=== PATIENT | male | born 2000 | race Caucasian/White ===

== ENCOUNTER 2023-05-19 22:49 | Inpatient (IN) | payer OTHER ==
[2023-05-19 23:48] LABS: ALT 51 U/L (4-49); AST 36 U/L (17-59); African American GFR (CKD) >90 (>60 ml/min/1.73 sqM); Albumin 4.5 g/dL (3.5-5.0); Alkaline Phosphatase 72 U/L (38-126); Anion Gap 14 mmol/L; Blood Urea Nitrogen 12 mg/dL (9-20); Calcium 8.8 mg/dL (8.4-10.2); Carbon Dioxide 23 mmol/L (22-30); Chloride 107 mmol/L (98-107); Glucose 92 mg/dL (74-99); Non-African American GFR(CKD) >90 (>60 ml/min/1.73 sqM); Potassium 3.9 mmol/L (3.5-5.1); Sodium 144 mmol/L (137-145); Total Bilirubin 0.7 mg/dL (0.2-1.3); Total Protein 7.4 g/dL (6.3-8.2)
[2023-05-19 23:50] LABS: Basophils % (A) 1 %; Eosinophils # (A) 0.1 k/uL (0-0.7); Eosinophils % (A) 1 %; HCT 46.6 % (39.0-53.0); HGB 16.7 gm/dL (13.0-17.5); Hyperchromasia Slight; Lymphocytes # (A) 2.2 k/uL (1.0-4.8); Lymphocytes % (A) 38 %; MCH 30.3 pg (25.0-35.0); MCHC 35.7 g/dL (31.0-37.0); MCV 84.7 fL (80.0-100.0); Mean Platelet Volume 7.8; Monocytes # (A) 0.3 k/uL (0-1.0); Monocytes % (A) 5 %; Neutrophils % (A) 52 %; Platelet Count 192 k/uL (150-450); WBC 5.8 k/uL (3.8-10.6)
[2023-05-19 23:59] LABS: Amphetamine Screen,Urine Not Detected (NotDetected); Barbiturate Screen,Urine Not Detected (NotDetected); Benzodiazepines Screen,Urine Not Detected (NotDetected); Cocaine Screen,Urine Not Detected (NotDetected); Methadone Screen, Urine Not Detected (NotDetected); Opiate Screen,Urine Not Detected (NotDetected); Oxycodone Screen, Urine Not Detected (NotDetected); Phencyclidine Screen,Urine Not Detected (NotDetected); Tricyclic Antidepressant,Urine Not Detected (NotDetected); Urn Cannabinoid Scrn Detected (NotDetected)
[2023-05-20 00:37] LABS: Alcohol 301 mg/dL
--- NOTE | 2023-05-20 01:45 | ED ---
General Adult HPI - General Chief complaint: Alcohol Stated complaint: ETOH Time Seen by Provider: 05/19/23 22:59 Source: family Mode of arrival: wheelchair Limitations: no limitations - History of Present Illness Initial comments: 's patient is 22-year-old man who drinks Frequently, accompanied by family members who state that the patient has been drinking and made some suicidal statements. the patient does appear intoxicated and didn't is not forthcoming. patient denies complaints. Denies recent trauma. -: hour(s) Severity scale (1-10): 0 Improves with: none Worsens with: none Associated Symptoms: denies other symptoms Treatments Prior to Arrival: none - Related Data Allergies Allergy/AdvReac Type Severity Reaction Status Date / Time No Known Allergies Allergy Verified 05/19/23 22:54 Review of Systems ROS Statement: Those systems with pertinent positive or pertinent negative responses have been documented in the HPI. ROS Other: All systems not noted in ROS Statement are negative. Constitutional: Denies: fever Respiratory: Denies: cough, dyspnea Cardiovascular: Denies: chest pain Gastrointestinal: Denies: abdominal pain, vomiting Musculoskeletal: Denies: back pain Neurological: Denies: headache Psychiatric: Reports: other Past Medical History Past Medical History: No Reported History History of Any Multi-Drug Resistant Organisms: None Reported Past Surgical History: No Surgical Hx Reported Past Psychological History: No Psychological Hx Reported Smoking Status: Vaper Past Alcohol Use History: Daily, Heavy Past Drug Use History: None Reported General Exam Limitations: no limitations General appearance: alert, in no apparent distress Head exam: Present: atraumatic, normocephalic Eye exam: Present: normal appearance, nystagmus. Absent: scleral icterus, conjunctival injection Neck exam: Present: normal inspection Respiratory exam: Present: normal lung sounds bilaterally. Absent: respiratory distress, wheezes, rales, rhonchi, stridor, accessory muscle use Cardiovascular Exam: Present: regular rate, normal rhythm, normal heart sounds. Absent: systolic murmur, diastolic murmur, rubs, gallop GI/Abdominal exam: Present: soft. Absent: distended, tenderness, guarding, rebound, rigid, mass Extremities exam: Present: normal inspection, normal capillary refill. Absent: pedal edema, calf tenderness Back exam: Present: normal inspection. Absent: CVA tenderness (R), CVA tenderness (L) Neurological exam: Present: alert Skin exam: Present: warm, dry, intact, normal color. Absent: rash Course Vital Signs 05/19/23 22:51 Temperature 97.5 F L Pulse Rate 94 Respiratory 18 Rate Blood Pressure 105/76 O2 Sat by Pulse 99 Oximetry Medical Decision Making - Lab Data Result diagrams: 05/19/23 23:16 05/19/23 23:16 Lab Results 05/19/23 05/19/23 05/19/23 Range/Units 23:16 23:16 23:29 WBC 5.8 (3.8-10.6) k/uL RBC 5.50 (4.30-5.90) m/uL Hgb 16.7 (13.0-17.5) gm/dL Hct 46.6 (39.0-53.0) % MCV 84.7 (80.0-100.0) fL MCH 30.3 (25.0-35.0) pg MCHC 35.7 (31.0-37.0) g/dL RDW 13.0 (11.5-15.5) % Plt Count 192 (150-450) k/uL MPV 7.8 Neutrophils % 52 % Lymphocytes % 38 % Monocytes % 5 % Eosinophils % 1 % Basophils % 1 % Neutrophils # 3.0 (1.3-7.7) k/uL Lymphocytes # 2.2 (1.0-4.8) k/uL Monocytes # 0.3 (0-1.0) k/uL Eosinophils # 0.1 (0-0.7) k/uL Basophils # 0.0 (0-0.2) k/uL Hyperchromasia Slight Sodium 144 (137-145) mmol/L Potassium 3.9 (3.5-5.1) mmol/L Chloride 107 (98-107) mmol/L Carbon Dioxide 23 (22-30) mmol/L Anion Gap 14 mmol/L BUN 12 (9-20) mg/dL Creatinine 0.67 (0.66-1.25) mg/dL Est GFR (CKD-EPI)AfAm >90 (>60 ml/min/1.73 sqM) Est GFR (CKD-EPI)NonAf >90 (>60 ml/min/1.73 sqM) Glucose 92 (74-99) mg/dL Calcium 8.8 (8.4-10.2) mg/dL Total Bilirubin 0.7 (0.2-1.3) mg/dL AST 36 (17-59) U/L ALT 51 H (4-49) U/L Alkaline Phosphatase 72 (38-126) U/L Total Protein 7.4 (6.3-8.2) g/dL Albumin 4.5 (3.5-5.0) g/dL Urine Opiates Screen Not Detected (NotDetected) Ur Oxycodone Screen Not Detected (NotDetected) Urine Methadone Screen Not Detected (NotDetected) Ur Barbiturates Screen Not Detected (NotDetected) U Tricyclic Antidepress Not Detected (NotDetected) Ur Phencyclidine Scrn Not Detected (NotDetected) Ur Amphetamines Screen Not Detected (NotDetected) U Methamphetamines Scrn Not Detected (NotDetected) U Benzodiazepines Scrn Not Detected (NotDetected) Urine Cocaine Screen Not Detected (NotDetected) U Marijuana (THC) Screen Detected H (NotDetected) Serum Alcohol 301 H* mg/dL Disposition Referrals: None,Stated [Primary Care Provider] - 1-2 days
[2023-05-20] MEDS ORDERED: NALOXONE 0.4 MG/ML 1 ML VIAL IV PRN (02:35)
--- NOTE | 2023-05-20 02:35 | P.HPIM ---
History of Present Illness H&P Date: 05/20/23 Patient is a 22-year-old male with a PMH of EtOH abuse who presents to the emergency room after being petitioned for alcohol abuse and depression with suicidal ideation. The patient reportedly has an extensive history of alcohol abuse and had expressed some suicidal ideation to his father which prompted him to file a petition. The patient was somewhat defensive during the interview and reported that he had nothing to drink today, despite his serum alcohol level being 301 in the emergency room. He reports drinking a " few shots of alcohol" daily. Denies any physical complaints at the time of interview. Denied experiencing chest discomfort, shortness of breath, fever, chills, cough, nause a, vomiting, abdominal pain, diarrhea. Laboratory evaluation in the emergency room was remarkable for serum alcohol level 301, urine toxicology positive for marijuana, AST 36, and ALT 51. ED documentation reviewed and case discussed with ED provider. Review of systems: Pertinent positives and negatives as discussed in HPI, a complete review of systems was performed and all other systems are negative. Physical examination: Vital signs reviewed General: non toxic, no distress, appears at stated age, normal weight Derm: no unusual rashes/lesions, warm Head: atraumatic, normocephalic, symmetric Eyes: EOMI, no lid lag, anicteric sclera, pupils equal round reactive to light ENT: Nose and ears atraumatic Neck: No cervical lymphadenopathy, trachea midline, supple Mouth: no lip lesion, mucus membranes moist Cardiovascular: S1S2 reg, no murmur, positive dorsalis pedis pulse bilateral, no edema Lungs: CTA bilateral, no rhonchi, no rales, no accessory muscle use Abdominal: soft, nontender to palpation, no guarding Ext: muscle strength 5 out of 5 in all 4 extremities grossly, no gross muscle atrophy, no contractures, Neuro: CN II-XI grossly intact, no gross focal neuro deficits Psych: Alert, oriented, appropriate affect Assessment: Alcohol intoxication, impending withdrawal Depression with suicidal ideation Imaging: None performed Data Review: Laboratory evaluation in the emergency room was remarkable for serum alcohol level 301, urine toxicology positive for marijuana, AST 36, and ALT 51. Plan: CIWA protocol with Ativan Continue with thiamine Continue IV fluids with normal saline 75 cc/h Advised on the importance of cessation from alcohol use Psychiatry consult Suicide precautions DVT prophylaxis: Lovenox subcu The patient is admitted with an anticipated less than 2 midnight stay for evaluation of alcohol abuse CODE STATUS: Full Code Discussed with: Patient Anticipated discharge place: Home Past Medical History Past Medical History: No Reported History History of Any Multi-Drug Resistant Organisms: None Reported Past Surgical History: No Surgical Hx Reported Past Psychological History: No Psychological Hx Reported Smoking Status: Vaper Past Alcohol Use History: Daily, Heavy Past Drug Use History: None Reported Medications and Allergies Allergies Allergy/AdvReac Type Severity Reaction Status Date / Time No Known Allergies Allergy Verified 05/19/23 22:54 Physical Exam Vitals: Vital Signs Temp Pulse Resp BP Pulse Ox 05/19/23 22:51 97.5 F L 94 18 105/76 99 Intake and Output 05/19/23 05/19/23 05/20/23 14:59 22:59 06:59 Other: Weight 63.503 kg Results CBC & Chem 7: 05/19/23 23:16 05/19/23 23:16 Labs: Abnormal Lab Results - Last 24 Hours (Table) 05/19/23 05/19/23 Range/Units 23:16 23:29 ALT 51 H (4-49) U/L U Marijuana (THC) Screen Detected H (NotDetected) Serum Alcohol 301 H* mg/dL
[2023-05-20] MEDS ORDERED: chlordiazePOXIDE 25 MG CAP PO PRN (02:37)
[2023-05-20] MEDS ORDERED: LORazepam 2 MG/ML INJ IV PRN ×3 (02:37)
--- NOTE | 2023-05-20 13:25 | P.PN ---
Subjective Progress Note Date: 05/20/23 Hospital course: Patient is a very pleasant 22-year-old male with a past medical history of EtOH abuse. He presented to the emergency department with a chief complaint of alcohol intoxication and suicidal ideations. Upon arrival to the emergency department, patient underwent evaluation. Vital signs upon arrival show blood pressure 105/76, heart rate 94, respiratory rate 18, temp 97.5 F, and SpO2 of 99% on room air. Labs completed and reviewed. CBC and BMP were unremarkable. Liver profile showing slightly elevated ALT of 51 otherwise normal findings. Urine drug screen was positive for marijuana otherwise negative. Serum blood alcohol level was elevated at 301. Patient was admitted under our services for medical detox and pending evaluation by psychiatrist. Physical exam: Vital signs reviewed and stable. General: Nontoxic, no distress and appears stated age. Derm: Skin warm and dry, normal coloration for ethnicity. Head: Atraumatic, normocephalic and symmetric. Eyes: EOMs intact, no lid lag, and anicteric sclera Mouth: no lip lesions, mucus membranes moist Cardiovascular: regular rate and rhythm with normal S1S2, no murmur, positive posterior tibial pulses bilaterally, and cap refill < 2 seconds. Lungs: Respirations even, regular, and unlabored on room air. Lungs CTA bilaterally, no rhonchi, no rales, no wheezing, and no accessory muscle usage. Abdominal: soft, nontender to palpation, no guarding, no appreciable organomegaly Ext: ROM intact. No gross muscle atrophy, no edema, no contractures Neuro: Speech clear, face symmetrical and CN II-XII grossly intact with no noted focal neuro deficits Psych: Alert and oriented to person, place, time, and situation. Appropriate and pleasant affect. Assessment and Plan of Care: Alcohol intoxication -Continue monitoring of CIWA scores and patient to be medicated with Ativan 0.5 mg every 4 hours as needed for CIWA score of 4-5, Ativan 1 mg every 4 hours for CIWA score of 6-7, Ativan 2 mg every 3 hours CIWA score of 8-9, and Ativan 2 mg every 2 hours forr CIWA score of 10 or greater. -Continuous IV hydration. -Thiamine 100 mg twice a day -Multivitamin daily -Folate 1 mg daily -Seizure, fall, and elopement precautions in place. -Urine drug screen -Continued close monitoring of electrolytes and replace as needed. -Telemetry monitoring. Suicidal ideations -Patient presented with reports of suicidal ideations, currently denies. -Patient was petitioned upon arrival to the emergency department, awaiting psychiatry to evaluate. -Continue suicide precautions with one-to-one sitter. CODE STATUS: Full code DVT prophylaxis: Lovenox Anticipated discharge date: Clinical course to determine Anticipated discharge place: Home versus inpatient psychiatric unit Patient was seen independently by Nurse Pracitioner. This document was prepared using [employer] dictation software. Please allow for errors in transformer mechanic, while rare they do occur. .I reviewed the documentation as provided by the GRAEME above, who is the original author of this note. I agree with the documented assessment and plan, with the following changes: none Objective - Vital Signs Vital signs: Vital Signs Temp 98.3 F 05/20/23 07:26 Pulse 72 05/20/23 07:26 Resp 17 05/20/23 07:26 BP 108/61 05/20/23 07:26 Pulse Ox 100 05/20/23 07:26 FiO2 Intake & Output 05/19/23 05/20/23 05/20/23 18:59 06:59 18:59 Weight 63.503 kg - Labs CBC & Chem 7: 05/19/23 23:16 05/19/23 23:16 Labs: Abnormal Lab Results - Last 24 Hours (Table) 05/19/23 05/19/23 Range/Units 23:16 23:29 ALT 51 H (4-49) U/L U Marijuana (THC) Screen Detected H (NotDetected) Serum Alcohol 301 H* mg/dL
[2023-05-20] MEDS: MULTIVITAMINS, THERA 1 EACH TAB PO SCH (14:46)
[2023-05-20] MEDS: SODIUM CHLORIDE 0.9% 1,000 ML IV SCH (14:46)
[2023-05-20] MEDS: FOLIC ACID 1 MG TAB PO SCH (14:46)
--- NOTE | 2023-05-20 15:08 | P.CN ---
Psychiatric Consult - . Consult date: 05/20/23 Consult:: 05/20/23 13:31 IDENTIFYING DATA: This patient is a 22-year-old male, currently lives with his father and brother in a house. He is unemployed. REASON FOR REFERRAL: Psychiatry was consulted for "mood disorder, suicidal ideations" HISTORY OF PRESENT ILLNESS: The patient presented to the hospital on 05/19, and was petitioned by his father claimed that patient was acting fairly intoxicated, belligerent and did endorse suicidal thoughts prior to coming in the hospital. Patient was fairly intoxicated when he arrived in the hospital, his blood alcohol level was 301. He is admitted medically. His urine drug screen is positive for THC. Patient's nurse states that she has no complaints about patient's behavior, he is not endorsing any suicidal thoughts. Patient was with a one-to-one sitter at his side. He was agreeable to speak to telegraphic typewriter installer. He appeared to be fairly calm and collected during the interview. He was fairly pleasant, he was somewhat guarded about what happened. He states that "I probably drank too much". States that he did not remember too much or what happened. States that he started drinking around 2 PM drank about 1/5 of vodka. States that he is watching television. Claims that he took a low to his brother who came and home. Claims that he has not remember much after that. States that he does not have any significant stressors at this time, denies any problems with mood depression or anxiety. States that he does not have any anxiety at this time. Claims that he is sleeping and eating well. He did give telegraphic typewriter installer permission to speak with his father Jeff over the phone petitioned him. [employer] talked to patient's father over the phone at [phone]. He states that he is concerned about his son's behavior as he is fairly reckless at home, has been getting into trouble with the law. He has a previous DUI. He states that he is going to the courts to have him evicted from the house and does not know what to do with him. Father claims that he plays hockey and he does well when h e is not drinking however when he starts drinking he becomes a different person it appears and becomes aggressive and belligerent at times and has been in trouble with the law and owes money. At this time patient denies any suicidal or homical ideations, intent or plan. Patient denies any auditory, visual hallucinations and denies any paranoia or delusions. Patients admits to using alcohol claims that he drinks 1-2 times a week, minimizing his alcohol use, states that he vapes nicotine products. Admits to occasional cannabis use. PAST PSYCHIATRIC HISTORY: Patient has a a history of alcohol use disorder. Patient denies being on any psychiatric medications. Patient denies any previous psychiatric hospitalizations. Patient denies any psychiatric outpatient follow-up. Patient denies any history of suicide attempts in the past. Past Medical History: No Reported History History of Any Multi-Drug Resistant Organisms: None Reported Past Surgical History: No Surgical Hx Reported Past Psychological History: No Psychological Hx Reported Smoking Status: Vaper Past Alcohol Use History: Daily, Heavy Past Drug Use History: None Reported ALLERGIES: as per EMR. CHEMICAL DEPENDENCY HISTORY: as per HPI. FAMILY PSYCHIATRIC/SUBSTANCE USE HISTORY: Denies SOCIAL HISTORY: Patient was born and raised in [place], claims that he recently moved up with his father in the [facility]. Claims that he lives with his father and brother in the house, he is currently unemployed. He claims that he did some college completed high school. States that he did have a DUI about 2 years ago, claims that he did not go to senior living. MENTAL STATUS EXAM: General Appearance: Patient appears to be thin, wearing hospital gown stated age is alert, pleasant, and cooperative. Patient appears to have fair hygiene and grooming wearing. Appropriate eye contact Behavior: Patient is calmly lying in bed without any agitated behavior. Evasive at times, guarded Speech: Patient's speech is fluent and nonpressured. Mood/Affect: Patient reports their mood is "ok", affect is congruent Suicidality/Homicidality: Patient denies having any suicidal or homicidal ideation intent or plan. Perceptions: Patient denies any visual hallucinations and denies any auditory hallucinations Though content/process: There is no evidence of any delusional thought content and thought process is linear and goal-directed. Minimizing his alcohol use Memory and concentration: AOX3, grossly intact for the purposes of this session. 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 -Would recommend the following medication changes/additions: [employer] attempted to offer patient antidepressant medications and also anticraving medications for his alcohol use disorder however patient declined. He states that he would rather do outpatient counseling instead. [employer] also spoke with patient in depth about the risks of alcohol and other substances to his mental health and also his physical health, patient will be understood and agreed. [employer] also encouraged patient to go to rehab or AA meetings or outpatient counseling, patient states that he will think about it however he is declining rehab at this time. -CIWA protocol with PRN Ativan for alcohol withdrawal. Continue to monitor vital signs. -Can discontinue 1:1 sitter at this time as patient is not currently an imminent threat to themselves -demolition worker to provide patient with outpatient mental health/psychiatry resources for appropriate follow up upon discharge -[employer] spoke with patient about substance abuse and the harmful effects on medical and mental health, patient verbally understood and agreed. -demolition worker to provide patient substance use treatment resources including AA/NA meetings in the community. -demolition worker to provide patient with access line number to call for inpatient substance rehab -Communicated plan to patient's nurse -Psychiatry will sign off at this time -Please contact with any questions. 05/20/23 15:00
[2023-05-21] MEDS: THIAMINE 100 MG TAB PO SCH (07:46)
[2023-05-21] MEDS: ENOXAPARIN 40 MG/0.4 ML SYRINGE SQ SCH (07:46)
[2023-05-21 08:25] VITALS: BP 111/73; PULSE 66; RESP 18; TEMP 98.4
[2023-05-21 09:28] LABS: African American GFR (CKD) >90 (>60 ml/min/1.73 sqM); Anion Gap 4 mmol/L; Blood Urea Nitrogen 13 mg/dL (9-20); Calcium 9.1 mg/dL (8.4-10.2); Carbon Dioxide 28 mmol/L (22-30); Chloride 105 mmol/L (98-107); Glucose 108 mg/dL (74-99); Magnesium 1.8 mg/dL (1.6-2.3); Non-African American GFR(CKD) >90 (>60 ml/min/1.73 sqM); Potassium 3.9 mmol/L (3.5-5.1); Sodium 137 mmol/L (137-145)
--- NOTE | 2023-05-21 12:59 | P.DS ---
Providers Date of admission: 05/20/23 02:37 Expected date of discharge: 05/21/23 Attending physician: Fadia Siegel MD Consults: 05/20/23 02:35 Consult Physician Routine Consulting Provider: Carson Keane Consult Reason/Comments: mood disorder, suicidal ideation Do you want consulting provider notified?: Yes Primary care physician: Stated None Hospital Course: Discharge Diagnosis: Alcohol intoxication with binge drinking behaviors. Patient monitored and provided with IV fluid hydration until clinically sober. Patient educated on the importance of not participating in binge drinking behaviors and strongly encouraged to avoid any and all alcohol use. Patient provided with outpatient counseling resources available to him. Suicidal ideations. Patient was evaluated by psychiatry clearing patient from their perspective recommending outpatient counseling. Hospital Course: Patient is a very pleasant 22-year-old male with a past medical history of EtOH abuse. He presented to the emergency department with a chief complaint of alcohol intoxication and suicidal ideations. Upon arrival to the emergency department, patient underwent evaluation. Vital signs upon arrival show blood pressure 105/76, heart rate 94, respiratory rate 18, temp 97.5 F, and SpO2 of 99% on room air. Labs completed and reviewed. CBC and BMP were unremarkable. Liver profile showing slightly elevated ALT of 51 otherwise normal findings. Urine drug screen was positive for marijuana otherwise negative. Serum blood alcohol level was elevated at 301. Patient was admitted under our services for medical detox and pending evaluation by psychiatrist. Patient monitored and provided with IV fluid hydration. He was evaluated by psychiatry clearing patient from their perspective recommending outpatient counseling. Medically, patient stable for discharge at this time. Patient free from any complaints or concerns, he continues to deny having any suicidal ideations. Patient educated on the importance of not participating in binge drinking behaviors and strongly encouraged to avoid any and all alcohol use. Patient provided with outpatient counseling resources available to him. Patient medically stable for discharge at this time. Physical exam: Vital signs reviewed and stable. General: Nontoxic, no distress and appears stated age. Derm: Skin warm and dry, normal coloration for ethnicity. Head: Atraumatic, normocephalic and symmetric. Eyes: EOMs intact, no lid lag, and anicteric sclera Mouth: no lip lesions, mucus membranes moist Cardiovascular: regular rate and rhythm with normal S1S2, no murmur, positive posterior tibial pulses bilaterally, and cap refill < 2 seconds. Lungs: Respirations even, regular, and unlabored on room air. Lungs CTA bilate rally, no rhonchi, no rales, no wheezing, and no accessory muscle usage. Abdominal: soft, nontender to palpation, no guarding, no appreciable organomegaly Ext: ROM intact. No gross muscle atrophy, no edema, no contractures Neuro: Speech clear, face symmetrical and CN II-XII grossly intact with no noted focal neuro deficits Psych: Alert and oriented to person, place, time, and situation. Appropriate and pleasant affect. A total of 28 minutes of time were spent preparing this complex discharge summary. Pt was discharged on 05/21/2023 at 12:50 PM. Patient was seen independently by Nurse Practitioner. This document was prepared using [employer] dictation software. Please allow for errors in education trainer while rare they do occur. Vinayak Farmer NP rendered care for this patient independently, reviewed the findings and plan as documented in the note above. I did not physically speak with or examine the patient on this date. Patient Condition at Discharge: Stable Plan - Discharge Summary Discharge Rx Participant: No New Discharge Prescriptions: No Action No Known Home Medications Discharge Medication List No Known Home Medications 05/20/23 [History] Follow up Appointment(s)/Referral(s): None,Stated [Primary Care Provider] - 1-2 days Patient Instructions/Handouts: Alcohol Intoxication (DC), At-Risk Alcohol Use (DC) Discharge/Stand Alone Forms: Outpatient Counseling, Inp Substance Abuse Facilities, Outpatient Therapy List Discharge Disposition: HOME SELF-CARE
== END 2023-05-21 15:41 | disposition home or self-care (01) | DRG 897 ==
LOC: EC 22:49 → 5NMEDONC 05-20 02:37 → 4SSUR 05-20 04:28
PROVIDERS: ADMIT Internal Medicine; ATTEND Internal Medicine
DX: F10.129 Alcohol abuse with intoxication, unspecified (principal); R45.851 Suicidal ideations; F12.10 Cannabis abuse, uncomplicated; F32.A Depression, unspecified; F43.25 Adjustment disorder with mixed disturbance of emotions and conduct; Z28.310 Unvaccinated for COVID-19; Y90.8 Blood alcohol level of 240 mg/100 ml or more; R74.01 Elevation of levels of liver transaminase levels; F17.290 Nicotine dependence, other tobacco product, uncomplicated; Z65.3 Problems related to other legal circumstances; Z56.0 Unemployment, unspecified; Z71.41 Alcohol abuse counseling and surveillance of alcoholic
CPT/HCPCS: 36415; 80048; 80053; 80306; 80320; 82075; 83735; 85025

== ENCOUNTER 2024-07-31 14:47 | Observation (INO) | payer OTHER ==
--- NOTE | 2024-07-31 15:08 | ED ---
General Adult HPI - General Chief complaint: Alcohol Stated complaint: ETOH Time Seen by Provider: 07/31/24 14:50 Source: patient, EMS, RN notes reviewed Mode of arrival: EMS Limitations: altered mental status - History of Present Illness Initial comments: Patient is a 23-year-old male present to the emergency department with alcohol intoxication. Patient refuses to answer questions when asked. Nursing staff patient states patient did make some sort of suicidal statement however patient will not confirm or deny this. No specific complaints. Patient states to nursing that he has been drinking heavy for the past 10 years. - Related Data Home Medications Medication Instructions Recorded Confirmed No Known Home Medications 05/20/23 05/20/23 Allergies Allergy/AdvReac Type Severity Reaction Status Date / Time No Known Allergies Allergy Verified 07/31/24 15:03 Review of Systems ROS Statement: Those systems with pertinent positive or pertinent negative responses have been documented in the HPI. ROS Other: All systems not noted in ROS Statement are negative. Constitutional: Denies: fever Eyes: Denies: eye pain ENT: Denies: ear pain Cardiovascular: Reports: palpitations Endocrine: Denies: fatigue Past Medical History Past Medical History: No Reported History History of Any Multi-Drug Resistant Organisms: None Reported Past Surgical History: No Surgical Hx Reported Past Anesthesia/Blood Transfusion Reactions: No Reported Reaction Past Psychological History: No Psychological Hx Reported Smoking Status: Vaper Past Alcohol Use History: Daily, Heavy Past Drug Use History: None Reported General Exam Limitations: altered mental status General appearance: alert, in no apparent distress Head exam: Present: normocephalic Eye exam: Present: normal appearance Respiratory exam: Present: normal lung sounds bilaterally Cardiovascular Exam: Present: tachycardia GI/Abdominal exam: Present: soft. Absent: tenderness Extremities exam: Present: normal inspection Neurological exam: Present: alert. Absent: motor sensory deficit Psychiatric exam: Present: agitated Skin exam: Present: normal color Course Vital Signs 07/31/24 14:50 Temperature 97.7 F Pulse Rate 128 H Respiratory 18 Rate Blood Pressure 116/79 O2 Sat by Pulse 97 Oximetry Medical Decision Making - Medical Decision Making Was pt. sent in by a medical professional or institution (, PA, CIVIL STRUCTURAL ENGINEER, urgent care, hospital, or shelter...) When possible be specific @ -No Did you speak to anyone other than the patient for history (EMS, parent, family, police, friend...)? What history was obtained from this source @ -No Did you review nursing and triage notes (agree or disagree)? Why? @ -I reviewed and agree with nursing and triage notes Were old charts reviewed (outside hosp., previous admission, EMS record, old EKG, old radiological studies, urgent care reports/EKG's, shelter records)? Report findings @ -No old charts were reviewed Differential Diagnosis (chest pain, altered mental status, abdominal pain women, abdominal pain men, vaginal bleeding, weakness, fever, dyspnea, syncope, headache, dizziness, GI bleed, back pain, seizure, CVA, palpatations, mental health, musculoskeletal)? @ -Differential Mental Health Depression, anxiety, bipolar, psychosis, schizophrenia, borderline personality, situational depression, adjustment disorder, behavioral disorder, brain tumor, malingering, substance abuse, encephalopathy, medication reaction, dementia, hypothyroidism, degenerative neurologic disorder, lupus.... This is not meant to be all-inclusive list EKG interpreted by me (3pts min.). @ -As above X-rays interpreted by me (1pt min.). @ -Chest x-ray shows no acute process CT interpreted by me (1pt min.). @ -None done U/S interpreted by me (1pt. min.). @ -None done What testing was considered but not performed or refused? (CT, X-rays, U/S, labs)? Why? @ -None What meds were considered but not given or refused? Why? @ -None Did you discuss the management of the patient with other professionals (professionals i.e. , PA, CIVIL STRUCTURAL ENGINEER, lab, RT, psych nurse, social media marketing analyst, electric wirer, teacher, police officer crime prevention, high risk case manager)? Give summary @ -Case discussed with Dr. Garcia who will admit covering hospital call Was smoking cessation discussed for >3mins.? @ -No Was critical care preformed (if so, how long)? @ -No Were there social determinants of health that impacted care today? How? (Homelessness, low income, unemployed, alcoholism, drug addiction, transp ortation, low edu. Level, literacy, decrease access to med. care, mcc, rehab)? @ -No Was there de-escalation of care discussed even if they declined (Discuss DNR or withdrawal of care, Hospice)? DNR status @ -No What co-morbidities impacted this encounter? (DM, HTN, Smoking, COPD, CAD, Cancer, CVA, ARF, Chemo, Hep., AIDS, mental health diagnosis, sleep apnea, morbid obesity)? @ -None Was patient admitted / discharged? Hospital course, mention meds given and route, prescriptions, significant lab abnormalities, going to OR and other pertinent info. @ -Patient presents with alcohol intoxication and depression. Alcohol level 369. Patient will be admitted with psychiatric consult. Admission orders written. Patient updated Undiagnosed new problem with uncertain prognosis? @ -No Drug Therapy requiring intensive monitoring for toxicity (Heparin, Nitro, Insulin, Cardizem)? @ -No Were any procedures done? @ -No Diagnosis/symptom? @ -Alcohol intoxication, depression Acute, or Chronic, or Acute on Chronic? @ -Acute, acute Uncomplicated (without systemic symptoms) or Complicated (systemic symptoms)? @ -Default Side effects of treatment? @ -No Exacerbation, Progression, or Severe Exacerbation? @ -No Poses a threat to life or bodily function? How? (Chest pain, [place], [place], pneumonia, PE, COPD, DKA, ARF, appy, cholecystitis, CVA, Diverticulitis, Homicidal, Suicidal, threat to staff... and all critical care pts) @ -No - Lab Data Result diagrams: 07/31/24 16:01 07/31/24 16:01 Lab Results 07/31/24 07/31/24 Range/Units 16:01 16:01 WBC 4.41 L (4.50-10.00) 10*3/uL RBC 5.03 (4.40-5.60) 10*6/uL Hgb 15.4 (13.0-17.0) g/dL Hct 43.7 (39.6-50.0) % MCV 86.9 (80.0-97.0) fL MCH 30.6 (27.0-32.0) pg MCHC 35.2 (32.0-37.0) g/dL Plt Count 248 (140-440) 10*3/uL MPV 8.9 L (9.5-12.2) fL Immature Gran % (Auto) 0.2 % Neutrophils % 63.6 % Lymphocytes % 27.2 % Monocytes % 7.9 % Eosinophils % 0.2 % Basophils % 0.9 % Immature Gran # 0.01 (0.00-0.04) 10*3/uL Neutrophils # 2.80 (1.80-7.70) 10*3/uL Lymphocytes # 1.20 (0.90-5.00) 10*3/uL Monocytes # 0.35 (0.20-1.00) 10*3/uL Eosinophils # 0.01 L (0.04-0.35) 10*3/uL Basophils # 0.04 (0.00-0.10) 10*3/uL Sodium 146 H (137-145) mmol/L Potassium 3.9 (3.5-5.1) mmol/L Chloride 104 (98-107) mmol/L Carbon Dioxide 23 (22-30) mmol/L Anion Gap 19 mmol/L BUN 5 L (9-20) mg/dL Creatinine 0.67 (0.66-1.25) mg/dL Est GFR (CKD-EPI)AfAm >90 (>60 ml/min/1.73 sqM) Est GFR (CKD-EPI)NonAf >90 (>60 ml/min/1.73 sqM) Glucose 93 (74-99) mg/dL Calcium 9.0 (8.4-10.2) mg/dL Magnesium 1.7 (1.6-2.3) mg/dL Serum Alcohol 369 H* mg/dL Disposition Clinical Impression: Alcoholic intoxication, Depression Disposition: ADMITTED IP TO THIS HOSP Is patient prescribed a controlled substance at d/c from ED?: No Referrals: None,Stated [Primary Care Provider] - 1-2 days Time of Disposition: 17:05
--- NOTE | 2024-07-31 15:31 | XR ---
EXAMINATION TYPE: XR chest 1V portable DATE OF EXAM: 07/31/2024 3:22 PM COMPARISON: None. CLINICAL INDICATION: Male, 23 years old with history of tachy, Chest pain TECHNIQUE: Single frontal view of the chest is obtained. FINDINGS: There is no focal air space opacity, pleural effusion, or pneumothorax seen. The cardiac silhouette size is within normal limits. The osseous structures are intact. IMPRESSION: 1. No acute process. [facility], , 07/31/2024 3:29 PM
[2024-07-31 16:14] LABS: Basophils # (A) 0.04 10*3/uL (0.00-0.10); Basophils % (A) 0.9 %; Eosinophils # (A) 0.01 10*3/uL (0.04-0.35); Eosinophils % (A) 0.2 %; HCT 43.7 % (39.6-50.0); HGB 15.4 g/dL (13.0-17.0); Lymphocytes % (A) 27.2 %; MCH 30.6 pg (27.0-32.0); MCHC 35.2 g/dL (32.0-37.0); MCV 86.9 fL (80.0-97.0); Mean Platelet Volume 8.9 fL (9.5-12.2); Monocytes # (A) 0.35 10*3/uL (0.20-1.00); Monocytes % (A) 7.9 %; Neutrophils % (A) 63.6 %; Platelet Count 248 10*3/uL (140-440); RBC 5.03 10*6/uL (4.40-5.60); RDW 12.6 % (11.5-14.5); WBC 4.41 10*3/uL (4.50-10.00)
[2024-07-31 16:24] LABS: African American GFR (CKD) >90 (>60 ml/min/1.73 sqM); Anion Gap 19 mmol/L; Blood Urea Nitrogen 5 mg/dL (9-20); Carbon Dioxide 23 mmol/L (22-30); Chloride 104 mmol/L (98-107); Glucose 93 mg/dL (74-99); Magnesium 1.7 mg/dL (1.6-2.3); Non-African American GFR(CKD) >90 (>60 ml/min/1.73 sqM); Potassium 3.9 mmol/L (3.5-5.1); Sodium 146 mmol/L (137-145)
[2024-07-31] MEDS: THIAMINE 100 MG/ML 2 ML VIAL IM STA (16:27)
[2024-07-31] MEDS: SODIUM CHLORIDE 0.9% 1,000 ML IV STA (16:27)
[2024-07-31 16:44] LABS: Alcohol 369 mg/dL
[2024-07-31] MEDS ORDERED: NALOXONE 0.4 MG/ML 1 ML VIAL IV PRN (17:05)
[2024-07-31] MEDS ORDERED: LORazepam 1 MG TAB PO PRN (17:06)
[2024-07-31] MEDS ORDERED: LORazepam 1 MG/0.5 ML VIAL IV PRN ×2 (17:06→17:29)
[2024-07-31] MEDS ORDERED: LORazepam 0.5 MG TAB PO PRN (17:06)
[2024-07-31] MEDS ORDERED: NICOTINE GUM (POLACRILEX) 2 MG GUM BUCCAL PRN (17:27)
[2024-07-31] MEDS: LORazepam 1 MG TAB PO PRN (17:28)
[2024-07-31] MEDS: SODIUM CHLORIDE 0.9% 1,000 ML IV SCH (17:29)
[2024-07-31] MEDS: NICOTINE 21MG/24HR PATCH TRANSDERM SCH (17:36)
--- NOTE | 2024-07-31 17:49 | P.HPIM ---
History of Present Illness H&P Date: 07/31/24 History of Presenting Illness: Patient is a 23-year-old male with a past medical history of daily alcohol abuse, nicotine dependence, and daily cannabis use. He presented to the hospital via EMS with a chief complaint of altered mental status secondary to alcohol intoxication. Patient admits to drinking greater than 1/5 of alcohol daily for the last 10 years. Upon arrival patient reportedly expressed to nursing staff having suicidal ideations. Upon my examination at bedside, patient does admit to feeling depressed and being in a "bad place in life" right now. He does admit to previous self injures behaviors like burning himself with cigarettes, but denies history of suicide attempt and currently denies suicidal ideations. Patient reports he would never do that because "God would not accept me into heaven". Patient denies having homicidal ideations as well as having any visual/auditory/tactile hallucinations. Patient reports depression and feeling extremely anxious because he is craving nicotine. Patient reports smoking greater than 1 pack of cigarettes daily and vaping. In addition to nicotine and alcohol use, patient also reports daily marijuana use. He denies any other drug use including heroin, cocaine, methamphetamines, or prescription medications. He denies having any recent falls or injuries. He denies having headache, lightheadedness, dizziness, chest pain, breath, cough or congestion, nausea or vomiting, or any other complaints at this time. On disability, patient underwent evaluation in the emergency department. Vital signs upon arrival show blood pressure 116/79, heart rate 128, respiratory rate 18, temp 97.7 F, and SpO2 of 97% on room air. Chest x-ray completed negative for acute cardiopulmonary process. Labs were completed and reviewed. CBC showing leukopenia with WBC count of 4.41 and low MPV of 8.9. BMP showing hyponatremia with sodium of 146 otherwise unremarkable. Blood glucose was 93. Magnesium slightly low at 1.7. Serum alcohol level was elevated at 369. Petition completed by emergency medicine specialist whom patient made suicidal statement to. Patient admitted under our services with consultation to psychiatry. Review of systems: Pertinent positives and negatives as discussed in HPI, a complete review of systems was performed and all other systems are negative. Physical exam: Vital signs reviewed and stable. General: Nontoxic, no distress and appears stated age. Derm: Skin warm and dry, normal coloration for ethnicity. Head: Atraumatic, normocephalic and symmetric. Eyes: EOM's intact, no lid lag, and anicteric sclera Mouth: no lip lesions, mucus membranes moist Cardiovascular: regular rate and rhythm with normal S1S2, no murmur, positive posterior tibial pulses bilaterally, and cap refill < 2 seconds. Lungs: Respirations even, regular, and unlabored on room air. Lungs CTA bilaterally, no rhonchi, no rales, no wheezing, and no accessory muscle usage. Abdominal: soft, nontender to palpation, no guarding, no appreciable organomegaly Ext: ROM intact. No gross muscle atrophy, no edema, no contractures Neuro: Speech clear, face symmetrical and CN II-XII grossly intact with no noted focal neuro deficits Psych: Alert and oriented to person, place, time, and situation. Patient appears anxious and is fidgety and pacing [id number] in room. He is pleasant and cooperative with assessment. Assessment and Plan of Care: Alcohol intoxication and active alcoholic Hypomagnesemia Hypernatremia -Order placed for monitoring of CIWA scores and patient to be medicated with Ativan 0.5 mg every 4 hours as needed for CIWA score of 4-5, Ativan 1 mg every 4 hours for CIWA score of 6-7, Ativan 2 mg every 3 hours CIWA score of 8-9, and Ativan 2 mg every 2 hours forr CIWA score of 10 or greater. -Continuous IV hydration with 0.9% normal saline at 100 cc/h. -Thiamine 100 mg daily, and Multivitamin daily, and Folate 1 mg daily -Seizure, fall, aspiration, and elopement precautions in place. -Urine drug screen -Continued close monitoring of electrolytes and replace as needed. -Telemetry monitoring. Suicidal ideations Anxiety with depression -Petition completed by emergency medicine specialist whom patient made suicidal statement to. -Psychiatry consulted for evaluation, appreciate recommendations. -Suicide precautions to be maintained with continuous one-to-one sitter. -Patient currently admits to feeling extremely anxious and depressed stating "Im in a bad place in life right now." However he currently denies having any suicidal or homicidal ideations and denies having any visual/auditory/tactile hallucinations. Nicotine dependence -Patient reports smoking greater than 1 pack of cigarettes daily plus vaping complaining of severe nicotine withdrawal. -Order placed for nicotine patch 21 mg daily in addition to nicotine gum 2 mg every 2 hours as needed for persistent cravings. -Educated patient on the recommendations of smoking cessation. Cannabinoid use disorder -Strongly recommend cessation of use, discussed with patient especially given history of anxiety, marijuana can worsen these effects. Data and imaging reviewed: As stated above in HPI CODE STATUS: Full code DVT prophylaxis: Lovenox Discussed with: Patient, RN, and ED physician Anticipated discharge date: Pending clinical course and clearance by psychiatry Anticipated discharge place: Pending clinical course and clearance by psychiatry Patient was seen independently by Nurse Practitioner. This document was prepared using [employer] dictation software. Please allow for errors in physician practice consultant while rare they do occur. Vinayak Farmer NP rendered care for this patient independently, reviewed the findings and plan as documented in the note above and agree with plan. I did not physically speak with or examine the patient on this date. Past Medical History Past Medical History: No Reported History History of Any Multi-Drug Resistant Organisms: None Reported Past Surgical History: No Surgical Hx Reported Past Anesthesia/Blood Transfusion Reactions: No Reported Reaction Past Psychological History: No Psychological Hx Reported Smoking Status: Vaper Past Alcohol Use History: Daily, Heavy Past Drug Use History: None Reported Medications and Allergies Home Medications Medication Instructions Recorded Confirmed Type No Known Home Medications 05/20/23 05/20/23 History Allergies Allergy/AdvReac Type Severity Reaction Status Date / Time No Known Allergies Allergy Verified 07/31/24 15:03 Physical Exam Vitals: Vital Signs Temp Pulse Resp BP Pulse Ox 07/31/24 17:25 100 18 112/84 100 07/31/24 14:50 97.7 F 128 H 18 116/79 97 Intake and Output 07/31/24 07/31/24 07/31/24 06:59 14:59 22:59 Other: Weight 61.235 kg Results CBC & Chem 7: 07/31/24 16:01 07/31/24 16:01 Labs: Abnormal Lab Results - Last 24 Hours (Table) 07/31/24 07/31/24 Range/Units 16:01 16:01 WBC 4.41 L (4.50-10.00) 10*3/uL MPV 8.9 L (9.5-12.2) fL Eosinophils # 0.01 L (0.04-0.35) 10*3/uL Sodium 146 H (137-145) mmol/L BUN 5 L (9-20) mg/dL Serum Alcohol 369 H* mg/dL
[2024-07-31] MEDS: MAGNESIUM SULFATE-D5W PMX 1 GM in DEXTROSE/WATER 1 100ML.BAG IVPB SCH (17:54)
[2024-08-01 04:07] LABS: Amphetamine Screen,Urine Not Detected (NotDetected); Barbiturate Screen,Urine Not Detected (NotDetected); Benzodiazepines Screen,Urine Detected (NotDetected); Cocaine Screen,Urine Not Detected (NotDetected); Methadone Screen, Urine Not Detected (NotDetected); Opiate Screen,Urine Not Detected (NotDetected); Oxycodone Screen, Urine Not Detected (NotDetected); Phencyclidine Screen,Urine Not Detected (NotDetected); Tricyclic Antidepressant,Urine Not Detected (NotDetected); Urn Cannabinoid Scrn Detected (NotDetected)
[2024-08-01] MEDS: LORazepam 1 MG TAB PO PRN (06:00)
[2024-08-01 07:43] VITALS: RESP 15
[2024-08-01] MEDS: PANTOPRAZOLE 40 MG/10 ML VIAL IV SCH (09:52)
[2024-08-01 09:53] LABS: HCT 37.5 % (39.6-50.0); MCH 30.6 pg (27.0-32.0); MCHC 34.7 g/dL (32.0-37.0); MCV 88.2 FL (80.0-97.0); Mean Platelet Volume 9.7 FL (9.5-12.2); NRBC Per 100 WBC 0 X 10*3/uL (0.00-0.01); Platelet Count 207 X 10*3/uL (140-440); RBC 4.25 X 10*6/uL (4.40-5.60); RDW 12.7 % (11.5-14.5); WBC 4.94 X 10*3/uL (4.50-10.00)
[2024-08-01] MEDS: MULTIVITAMINS, THERA 1 EACH TAB PO SCH (09:53)
[2024-08-01] MEDS: ENOXAPARIN 40 MG/0.4 ML SYRINGE SQ SCH (09:53)
[2024-08-01] MEDS: FOLIC ACID 1 MG TAB PO SCH (09:53)
[2024-08-01 10:11] LABS: BUN/Creat Ratio 6.86 Ratio (12.00-20.00); Blood Urea Nitrogen 4.8 mg/dL (9.0-27.0); Glucose 82 mg/dL (70-110)
[2024-08-01 10:12] LABS: ALT 166 U/L (10-49); AST 58 U/L (14-35); Albumin 4.1 g/dL (3.8-4.9); Albumin/Globulin Ratio 1.86 Ratio (1.60-3.17); Alkaline Phosphatase 48 U/L (41-126); Calcium 8.5 mg/dL (8.7-10.3); Carbon Dioxide 23.8 mmol/L (21.6-31.8); Chloride 102 mmol/L (96-109); Globulin 2.2 g/dL (1.6-3.3); Sodium 139 mmol/L (135-145); Total Bilirubin 0.9 mg/dL (0.3-1.2); Total Protein 6.3 g/dL (6.2-8.2)
[2024-08-01] MEDS: ONDANSETRON 4 MG/2 ML VIAL IVP PRN (13:16)
[2024-08-01 14:44] VITALS: BP 120/77; PULSE 119; TEMP 98.3
--- NOTE | 2024-08-01 15:44 | P.PN ---
Subjective Progress Note Date: 08/01/24 Hospital course: Patient is a 23-year-old male with a past medical history of daily alcohol abuse, nicotine dependence, and daily cannabis use. He presented to the hospital via EMS with a chief complaint of altered mental status secondary to alcohol intoxication. Patient admits to drinking greater than 1/5 of alcohol daily for the last 10 years. Upon arrival patient reportedly expressed to nursing staff having suicidal ideations. Upon my examination at bedside, patient does admit to feeling depressed and being in a "bad place in life" right now. He does admit to previous self injures behaviors like burning himself with cigarettes, but denies history of suicide attempt and currently denies suicidal ideations. Patient reports he would never do that because "God would not accept me into heaven". Patient denies having homicidal ideations as well as having any visual/auditory/tactile hallucinations. Patient reports depression and feeling extremely anxious because he is craving nicotine. Patient reports smoking greater than 1 pack of cigarettes daily and vaping. In addition to nicotine and alcohol use, patient also reports daily marijuana use. He denies any other drug use including heroin, cocaine, methamphetamines, or prescription medications. He denies having any recent falls or injuries. He denies having headache, lightheadedness, dizziness, chest pain, breath, cough or congestion, nausea or vomiting, or any other complaints at this time. On disability, patient underwent evaluation in the emergency department. Vital signs upon arrival show blood pressure 116/79, heart rate 128, respiratory rate 18, temp 97.7 F, and SpO2 of 97% on room air. Chest x-ray completed negative for acute cardiopulmonary process. Labs were completed and reviewed. CBC showing leukopenia with WBC count of 4.41 and low MPV of 8.9. BMP showing hyponatremia with sodium of 146 otherwise unremarkable. Blood glucose was 93. Magnesium slightly low at 1.7. Serum alcohol level was elevated at 369. Petition completed by cuff stitcher whom patient made suicidal statement to. Patient admit hellen under our services with consultation to psychiatry. Physical exam: Patient was seen and fully evaluated at bedside this morning, he was resting in bed with sitter at bedside maintaining safety. Patient continues to deny having suicidal or homicidal ideations, explained to patient that he was petition by nursing staff on arrival after expressing suicidal thoughts. Patient instructed psychiatry to see later today and if cleared we can discharge only at that time. Discussed with patient possibility of inpatient drug and alcohol rehabilitation facility and patient adamantly declines at this time Vital signs reviewed and stable. General: Nontoxic, no distress and appears stated age. Derm: Skin warm and dry, normal coloration for ethnicity. Head: Atraumatic, normocephalic and symmetric. Eyes: EOM's intact, no lid lag, and anicteric sclera Mouth: no lip lesions, mucus membranes moist Cardiovascular: regular rate and rhythm with normal S1S2, no murmur, positive posterior tibial pulses bilaterally, and cap refill < 2 seconds. Lungs: Respirations even, regular, and unlabored on room air. Lungs CTA bilaterally, no rhonchi, no rales, no wheezing, and no accessory muscle usage. Abdominal: soft, nontender to palpation, no guarding, no appreciable organomegaly Ext: ROM intact. No gross muscle atrophy, no edema, no contractures Neuro: Speech clear, face symmetrical and CN II-XII grossly intact with no noted focal neuro deficits Psych: Alert and oriented to person, place, time, and situation. Patient calm and cooperative this morning, no longer appearing anxious. Assessment and Plan of Care: Alcohol withdrawal Alcohol intoxication and active alcoholic Hypomagnesemia Hypernatremia -Order placed for monitoring of CIWA scores and patient to be medicated with Ativan 0.5 mg every 4 hours as needed for CIWA score of 4-5, Ativan 1 mg every 4 hours for CIWA score of 6-7, Ativan 2 mg every 3 hours CIWA score of 8-9, and Ativan 2 mg every 2 hours forr CIWA score of 10 or greater. -Continuous IV hydration with 0.9% normal saline at 100 cc/h. -Thiamine 100 mg daily, and Multivitamin daily, and Folate 1 mg daily -Seizure, fall, aspiration, and elopement precautions in place. -Urine drug screen -Continued close monitoring of electrolytes and replace as needed. -Telemetry monitoring. Suicidal ideations Anxiety with depression -Petition completed by cuff stitcher whom patient made suicidal statement to. -Psychiatry consulted for evaluation, appreciate recommendations. -Suicide precautions to be maintained with continuous one-to-one sitter. -Patient currently admits to feeling extremely anxious and depressed stating "Im in a bad place in life right now." However he currently denies having any suicidal or homicidal ideations and denies having any visual/auditory/tactile hallucinations. Nicotine dependence -Patient reports smoking greater than 1 pack of cigarettes daily plus vaping complaining of severe nicotine withdrawal. -Order placed for nicotine patch 21 mg daily in addition to nicotine gum 2 mg every 2 hours as needed for persistent cravings. -Educated patient on the recommendations of smoking cessation. Cannabinoid use disorder -Strongly recommend cessation of use, discussed with patient especially given history of anxiety, marijuana can worsen these effects. Data and reviewed: Morning labs reviewed. CBC showing RBC count of 4.25 and hematocrit of 37.5 with normal hemoglobin of 13.0. BMP showing elevated anion gap of 13.20 but improving from previous anion gap of 19 drawn yesterday. Blood glucose was 82. Magnesium was 2.0. Liver profile showing mild transaminitis with AST of 58 and ALT of 166. Vital signs reviewed. Blood pressure 118/69, heart rate 90, respiratory rate 15, temp 97.9 F, and SpO2 of 97% on room air. CODE STATUS: Full code DVT prophylaxis: Lovenox Discussed with: Patient, RN, and ED physician Anticipated discharge date: Pending clinical course and evaluation by psychiatry Anticipated discharge place: Pending clinical course and clearance by psychiatry Patient was seen independently by Nurse Practitioner. This document was prepared using [employer] dictation software. Please allow for errors in ase certified technician while rare they do occur. Vinayak Farmer NP rendered care for this patient independently, reviewed the findings and plan as documented in the note above and agree with plan. I did not physically speak with or examine the patient on this date. Objective - Vital Signs Vital signs: Vital Signs Temp 97.9 F 08/01/24 07:00 Pulse 90 08/01/24 07:00 Resp 15 08/01/24 07:00 BP 118/69 08/01/24 07:00 Pulse Ox 97 08/01/24 07:00 FiO2 Intake & Output 07/31/24 08/01/24 08/01/24 18:59 06:59 18:59 Intake Total 540 Balance 540 Weight 61.235 kg Intake: Oral 540 Other: # Voids 2 - Labs CBC & Chem 7: 08/01/24 03:29 08/01/24 03:29 Labs: Abnormal Lab Results - Last 24 Hours (Table) 06/20/25 06/20/25 06/20/25 Range/Units 16:01 16:01 21:26 WBC 4.41 L (4.50-10.00) 10*3/uL MPV 8.9 L (9.5-12.2) fL Eosinophils # 0.01 L (0.04-0.35) 10*3/uL Sodium 146 H (137-145) mmol/L BUN 5 L (9-20) mg/dL U Benzodiazepines Scrn Detected H (NotDetected) U Marijuana (THC) Screen Detected H (NotDetected) Serum Alcohol 369 H* mg/dL
--- NOTE | 2024-08-01 16:12 | P.CN ---
Psychiatric Consult - . Consult date: 08/01/24 Consult:: Dictation was produced using [employer] dictation software. Please excuse any grammatical, word or spelling errors. IDENTIFYING DATA: This patient is a 23 years old male with past history of nicotine, alcohol and cannabis use who presented to the emergency department due to alcohol intoxication. REASON FOR REFERRAL: Psychiatry was consulted for psychiatric evaluation HISTORY OF PRESENT ILLNESS: The patient presented to the hospital with altered mental status due to alcohol intoxication. He refused to answer questions when asked by staff upon arrival. Per staff report that he made some sort of suicidal statements however could not confirm or deny. He reported to the nursing staff that he has been drinking heavily for 10 years. Per report he has been drinking greater than 1/5 of alcohol daily. Serum alcohol level was elevated at 369, AST elevated at 58, ALT elevated at 166, UDS positive for cannabis and benzodiazepine. He admitted to feeling down and depressed. Petition was completed during triage by RN. Suicidal precaution was maintained with one-to-one sitter. Upon evaluation today the patient was in his room, laying in bed, sitter at bedside. The patient states that he has been drinking too much lately, reported that he asked his father to bring him to the hospital. States that he wanted to get some help to stop drinking. States that his last drink was yesterday, reported 1/5 of vodka which he drinks on average daily. States that he was binge drinking 12 1/5 of vodka at times. He reported that he gets anxiety, nausea as well as shaking. Denied any previous history of withdrawal seizures or DTs. Reported that he had 2 DUIs in the past, last was 1 year ago. Reported that he does not drive anymore. States that he spent 60 to 90 days in the program for rehabilitation last year and does not consider inpatient rehab at this time however he would like to go to AA meetings and outpatient rehab. He admitted to mild to moderate depression and anxiety mainly related to his drinking habit. Reported that he feels guilty about his drinking and would like to stop. He reported that his depressive and anxiety symptoms are related to alcohol. He denied any current suicidal, self-harm or homicidal thoughts or behavior, denied any previous history of suicide. He reported that his sleep has been interrupted and usually he gets 3-6 hours of sleep at night on average. Admitted to good appetite. States that " I could be doing better". Reported racing thoughts at times however denied any manic or hypomanic symptoms, denied any goal-directed activities. Denied any auditory or visual hallucination, paranoia or delusion. He reported vaping daily, using cannabis daily, denied any illicit substance use. PAST PSYCHIATRIC HISTORY: - Inpatient Hospitalizations: Denies - Outpatient Care: Denies - Current Psychotropics: None currently - Prior Psychotropics/Therapy: Denies - Suicidal Attempts: Denies - Trauma History: States that he has some emotional trauma related to his DUI however denied any flashbacks or nightmares. PAST MEDICAL HISTORY: As per ED note Past Medical History: No Reported History History of Any Multi-Drug Resistant Organisms: None Reported Past Surgical History: No Surgical Hx Reported Past Anesthesia/Blood Transfusion Reactions: No Reported Reaction Past Psychological History: No Psychological Hx Reported Smoking Status: Vaper Past Alcohol Use History: Daily, Heavy Past Drug Use History: None Reported ALLERGIES: as per EMR. CHEMICAL DEPENDENCY HISTORY: as per HPI. - Tobacco: Admitted to vaping, per chart review he smokes more than 1 pack/day - Alcohol: 1/5 per day - Illicit Drugs: Denies - Cannabis: Daily FAMILY PSYCHIATRIC/SUBSTANCE USE HISTORY: Denies any family history of mental illness, reported that his brothers struggle with alcohol. SOCIAL HISTORY: Patient was born and raised in [place], he lives with his dad in [place], unemployed, claims that he had some college as a highest level of education. Reported that he had 2 DUIs before, spent 40 days in custodial 1 year ago. He went to juvenile care home when he was 13 years old for 3 days. He has 3 older siblings. MENTAL STATUS EXAM: General Appearance: Patient appears to be stated age is alert, pleasant, and cooperative. Patient appears to have fair hygiene and grooming wearing hospital gown with [fair] eye contact. Behavior: Patient is calmly lying in bed without any agitated behavior. Speech: Patient's speech is fluent and nonpressured. Mood/Affect: Patient reports their mood is "anxious", affect is congruent Suicidality/Homicidality: Patient denies having any suicidal or homicidal ideation intent or plan. Perceptions: Patient denies any visual hallucinations and denies any auditory hallucinations Though content/process: There is no evidence of any delusional thought content and thought process is linear and goal-directed. Memory and concentration: AOX3, grossly intact for the purposes of this session. 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 - Continue your current care treatment as per primary team -Would recommend the following medication changes/additions: May consider starting SSRI like Lexapro on outpatient basis, and ReVia for alcohol craving once withdrawal is over -CIWA protocol with PRN Ativan for alcohol withdrawal. Continue to monitor vital signs. -Can discontinue 1:1 sitter at this time as patient is not currently an imminent threat to themselves, patient denied any current suicidal, self-harm or homicidal thoughts or behavior -drive worker to provide patient with outpatient mental health/psychiatry resources for appropriate follow up upon discharge -Wad Printing Machine Operator spoke with patient about substance abuse and the harmful effects on medical and mental health, patient verbally understood and agreed, reported that he would like to attend AA meetings and outpatient rehab, would like to get resources from the clinical social work aide -Psychoeducation was provided into substance use, brief psychotherapy was provided. Patient will benefit from having a therapist on outpatient basis. -drive worker to provide patient substance use treatment resources including AA/NA meetings in the community. -drive worker to provide patient with access line number to call for inpatient/outpatient substance rehab -Communicated plan to patient's nurse -Psychiatry will sign off at this time -Please contact with any questions. 08/01/24 14:07 08/01/24 15:55
--- NOTE | 2024-08-01 16:29 | P.DS ---
Providers Date of admission: 07/31/24 17:05 Expected date of discharge: 08/01/24 Attending physician: Cristobal Willis Consults: 07/31/24 17:06 Consult Physician Routine Consulting Provider: Psychiatry - [facility] Psychiatry Consult Reason/Comments: psychiatric eval Do you want consulting provider notified?: Yes Primary care physician: Stated None Hospital Course: Discharge Diagnosis: Alcohol withdrawal Alcohol intoxication in active alcoholic upon admission Hypomagnesemia Hypernatremia Suicidal ideations, patient evaluated by psychiatry clearing patient from psychiatric perspective for discharge stating patient does not meet criteria for inpatient psychiatric admission and that patient is not currently an imminent threat to himself or others. Recommending outpatient counseling/therapy and patient to be provided with outpatient resources for alcohol/substance abuse. Anxiety with depression Nicotine dependence Cannabinoid use disorder Hospital Course: Patient is a 23-year-old male with a past medical history of daily alcohol abuse, nicotine dependence, and daily cannabis use. He presented to the [facility] via EMS with a chief complaint of altered mental status secondary to alcohol intoxication. Patient admits to drinking greater than 1/5 of alcohol daily for the last 10 years. Upon arrival patient reportedly expressed to nursing staff having suicidal ideations. Upon my examination at bedside, patient does admit to feeling depressed and being in a "bad place in life" right now. He does admit to previous self injures behaviors like burning himself with cigarettes, but denies history of suicide attempt and currently denies suicidal ideations. Patient reports he would never do that because "God would not accept me into heaven". Patient denies having homicidal ideations as well as having any visual/auditory/tactile hallucinations. Patient reports depression and feeling extremely anxious because he is craving nicotine. Patient reports smoking greater than 1 pack of cigarettes daily and vaping. In addition to nicotine and alcohol use, patient also reports daily marijuana use. He denies any other drug use including heroin, cocaine, methamphetamines, or prescription medications. He denies having any recent falls or injuries. He denies having headache, lightheadedness, dizziness, chest pain, breath, cough or congestion, nausea or vomiting, or any other complaints at this time. On disability, patient underwent evaluation in the emergency department. Vital signs upon arrival show blood pressure 116/79, heart rate 128, respiratory rate 18, temp 97.7 F, and SpO2 of 97% on room air. Chest x-ray completed negative for acute cardiopulmonary process. Labs were completed and reviewed. CBC showing leukopenia with WBC count of 4.41 and low MPV of 8.9. BMP showing hyponatremia with sodium of 146 otherwise unremarkable. Blood glucose was 93. Magnesium slightly low at 1.7. Serum alcohol level was elevated at 369. Petition completed by biscuitware brusher whom patient made suicidal statement to. Patient admitted under our services with consultation to psychiatry. Patient monitored overnight received continuous IV fluid hydration and was placed on CIWA protocol with benzodiazepine administration for symptoms of alcohol withdrawal. Patient is clinically and medically sober at this time. He continues to deny having any suicidal or homicidal ideations or experiencing any verbal/tactile/auditory hallucinations. Patient was evaluated by psychiatrist and was cleared from psychiatric perspective for discharge stating patient does not meet criteria for inpatient psychiatric admission and that patient is not currently an imminent threat to himself or others. Recommending outpatient counseling/therapy and patient to be provided with outpatient resources available to him. Patient is medically optimized at this time, provided with local PCP for follow-up. Patient was offered assistance with placement in inpatient drug and alcohol rehabilitation facility but declined. Patient strongly encouraged to avoid any and all alcohol use and was provided with a list of outpatient resources available to him including AA meetings, community resources, outpatient counseling, and inpatient substance abuse facilities. Physical exam: Vital signs reviewed and stable. General: Nontoxic, no distress and appears stated age. Derm: Skin warm and dry, normal coloration for ethnicity. Head: Atraumatic, normocephalic and symmetric. Eyes: EOM's intact, no lid lag, and anicteric sclera Mouth: no lip lesions, mucus membranes moist Cardiovascular: regular rate and rhythm with normal S1S2, no murmur, positive posterior tibial pulses bilaterally, and cap refill < 2 seconds. Lungs: Respirations even, regular, and unlabored on room air. Lungs CTA bilaterally, no rhonchi, no rales, no wheezing, and no accessory muscle usage. Abdominal: soft, nontender to palpation, no guarding, no appreciable organomegaly Ext: ROM intact. No gross muscle atrophy, no edema, no contractures Neuro: Speech clear, face symmetrical and CN II-XII grossly intact with no noted focal neuro deficits Psych: Alert and oriented to person, place, time, and situation. Patient calm and cooperative no longer appearing anxious. A total of 33 minutes of time were spent preparing this complex discharge summary. Pt was discharged on 08/01/2024 at 4:21 PM. Patient was seen independently by Nurse Practitioner. This document was prepared using [employer] dictation software. Please allow for errors in meat slicer while rare they do occur. Vinayak Farmer NP rendered care for this patient independently, reviewed the findings and plan as documented in the note above. I did not physically speak with or examine the patient on this date. Patient Condition at Discharge: Stable Plan - Discharge Summary New Discharge Prescriptions: Continue Multivitamins, Thera [Multivitamin (formulary)] 1 tab PO DAILY Turmeric Root Extract [Turmeric] 500 mg PO DAILY Cider Vinegar [Apple Cider Vinegar] 300 mg PO DAILY Discharge Medication List Cider Vinegar [Apple Cider Vinegar] 300 mg PO DAILY 07/31/24 [History] Multivitamins, Thera [Multivitamin (formulary)] 1 tab PO DAILY 07/31/24 [History] Turmeric Root Extract [Turmeric] 500 mg PO DAILY 07/31/24 [History] Follow up Appointment(s)/Referral(s): Abdulaziz Kirkland MD [STAFF PHYSICIAN] - 1 Week Patient Instructions/Handouts: Depression (DC), Abuse of Alcohol (DC), Alcohol Withdrawal (DC), Help Prevent Suicide (DC) Discharge/Stand Alone Forms: AA Meetings [facility], [facility] Resources, Outpatient Counseling, In Substance Abuse Facilities Discharge Disposition: HOME SELF-CARE
== END 2024-08-01 17:56 | disposition home or self-care (01) ==
LOC: EC 14:47 → 6NMEDSUR 17:05
PROVIDERS: ADMIT Student in an Organized Health Care Education/Training Program; ATTEND Student in an Organized Health Care Education/Training Program
DX: F10.239 Alcohol dependence with withdrawal, unspecified (principal); F10.229 Alcohol dependence with intoxication, unspecified; D72.819 Decreased white blood cell count, unspecified; E83.42 Hypomagnesemia; E87.0 Hyperosmolality and hypernatremia; F12.90 Cannabis use, unspecified, uncomplicated; Y90.8 Blood alcohol level of 240 mg/100 ml or more; F32.A Depression, unspecified; F41.9 Anxiety disorder, unspecified; F17.290 Nicotine dependence, other tobacco product, uncomplicated; R45.851 Suicidal ideations; F17.213 Nicotine dependence, cigarettes, with withdrawal; Z91.52 Personal history of nonsuicidal self-harm; Z74.3 Need for continuous supervision
CPT/HCPCS: 96361 ×2; 96375; 82075; 96365; 96372; 99285; 36415; 93005; 80053; 80048; 83735 ×2; 85025; 85027; 80306; 80320; 71045; G0378 ×2; S4990 ×2; J3411; J2405; J3475; J2470

== ENCOUNTER 2024-08-16 16:39 | Inpatient (IN) | payer OTHER ==
[2024-08-16] MEDS ORDERED: LORazepam 0.5 MG TAB PO PRN (16:54)
[2024-08-16] MEDS ORDERED: LORazepam 1 MG TAB PO PRN (16:54)
[2024-08-16] MEDS ORDERED: LORazepam 1 MG/0.5 ML VIAL IV PRN (16:54)
--- NOTE | 2024-08-16 16:54 | ED ---
Alcohol HPI - General Chief Complaint: Alcohol Stated Complaint: ETOH withdrawal Time Seen by Provider: 08/16/24 16:51 Source: patient, RN notes reviewed, old records reviewed, Caregiver (Mother is at bedside) Mode of arrival: ambulatory Limitations: no limitations - History of Present Illness Initial Comments: This is a 23-year-old male to the ER for evaluation of alcohol intoxication desiring treatment, patient does admit to shortness of breath and severe alcohol intoxication currently MD Complaint: alcohol intoxication, alcohol withdrawal, alcohol dependence, desires rehab, medical clearance for detox facility 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(s) Previous Visits for Alcohol Intoxication?: Yes Recent Trauma: Yes Associated Symptoms: denies other symptoms Treatments Prior to Arrival: none Chronic Alcohol Use: Yes - Related Data Home Medications Medication Instructions Recorded Confirmed Cider Vinegar [Apple Cider Vinegar] 300 mg PO DAILY 07/31/24 07/31/24 Multivitamins, Thera [Multivitamin 1 tab PO DAILY 07/31/24 07/31/24 (formulary)] Turmeric Root Extract [Turmeric] 500 mg PO DAILY 07/31/24 07/31/24 Allergies Allergy/AdvReac Type Severity Reaction Status Date / Time No Known Allergies Allergy Verified 08/16/24 16:50 Review of Systems ROS Statement: Those systems with pertinent positive or pertinent negative responses have been documented in the HPI. ROS Other: All systems not noted in ROS Statement are negative. Past Medical History Past Medical History: No Reported History History of Any Multi-Drug Resistant Organisms: None Reported Past Surgical History: No Surgical Hx Reported Past Anesthesia/Blood Transfusion Reactions: No Reported Reaction Past Psychological History: No Psychological Hx Reported Smoking Status: Vaper Past Alcohol Use History: Abuse, Daily, Heavy Past Drug Use History: Marijuana General Exam Limitations: no limitations General appearance: alert, in no apparent distress Head exam: Present: atraumatic, normocephalic, normal inspection Eye exam: Present: normal appearance, PERRL, EOMI. Absent: scleral icterus, conjunctival injection, periorbital swelling ENT exam: Present: normal exam, mucous membranes moist Neck exam: Present: normal inspection. Absent: tenderness, meningismus, lymphadenopathy Respiratory exam: Present: normal lung sounds bilaterally. Absent: respiratory distress, wheezes, rales, rhonchi, stridor Cardiovascular Exam: Present: regular rate, normal rhythm, normal heart sounds. Absent: systolic murmur, diastolic murmur, rubs, gallop, clicks GI/Abdominal exam: Present: soft, normal bowel sounds. Absent: distended, tenderness, guarding, rebound, rigid Extremities exam: Present: normal inspection, full ROM, normal capillary refill. Absent: tenderness, pedal edema, joint swelling, calf tenderness Back exam: Present: normal inspection Neurological exam: Present: alert, oriented X3, CN II-XII intact Psychiatric exam: Present: normal affect, normal mood Skin exam: Present: warm, dry, intact, normal color. Absent: rash Course Vital Signs 08/16/24 16:44 Temperature 98.2 F Pulse Rate 141 H Respiratory 18 Rate Blood Pressure 128/91 O2 Sat by Pulse 98 Oximetry - Reevaluation(s) Reevaluation #1: 08/16/24 17:08 Medical records reviewed Reevaluation #2: 08/16/24 18:39 Patient symptoms are slowly improving here in the ER Reevaluation #3: 08/16/24 18:40 Patient informed of results questions answered Reevaluation #4: Was pt. sent in by a medical professional or institution (, PA, UNIT NURSE, urgent care, hospital, or shelter...) When possible be specific @ -no Did you speak to anyone other than the patient for history (EMS, parent, family, police, friend...)? What history was obtained from this source @ -no Did you review nursing and triage notes (agree or disagree)? Why? @ -agree Are old charts reviewed (outside hosp., previous admission, EMS record, old EKG, old radiological studies, urgent care reports/EKG's, shelter records)? Rep ort findings @ -yes Differential Diagnosis (chest pain, altered mental status, abdominal pain women, abdominal pain men, vaginal bleeding, weakness, fever, dyspnea, syncope, headache, dizziness, GI bleed, back pain, seizure, CVA, palpatations, mental health, musculoskeletal)? @ -prior EKG interpreted by me (3pts min.). @ -yes X-rays interpreted by me (1pt min.). @ -yes negative for acute disease CT interpreted by me (1pt min.). @ -no U/S interpreted by me (1pt. min.). @ -no What testing was considered but not performed or refused? (CT, X-rays, U/S, labs)? Why? @ -none What meds were considered but not given or refused? Why? @ -none Did you discuss the management of the patient with other professionals (professionals i.e. , PA, UNIT NURSE, lab, RT, psych nurse, social services aide, senior game developer, t eacher, business banking officer, case supervisor)? Give summary @ -no Was smoking cessation discussed for >3mins.? @ -no Was critical care preformed (if so, how long)? @ -no Were there social determinants of health that impacted care today? How? (Homelessness, low income, unemployed, alcoholism, drug addiction, transportation, low edu. Level, literacy, decrease access to med. care, assisted, rehab)? @ -none Was there de-escalation of care discussed even if they declined (Discuss DNR or withdrawal of care, Hospice)? DNR status @ -no What co-morbidities impacted this encounter? (DM, HTN, Smoking, COPD, CAD, Cancer, CVA, ARF, Chemo, Hep., AIDS, mental health diagnosis, sleep apnea, morbid obesity)? @ -none Was patient admitted / discharged? Hospital course, mention meds given and route, prescriptions, significant lab abnormalities, going to OR and other pertinent info. @ - Undiagnosed new problem with uncertain prognosis? @ -no Drug Therapy requiring intensive monitoring for toxicity (Heparin, Nitro, Insulin, Cardizem)? @ -no Were any procedures done? @ -no Diagnosis/symptom? @ - Acute, or Chronic, or Acute on Chronic? @ -Acute Uncomplicated (without systemic symptoms) or Complicated (systemic symptoms)? @ -Complicated Side effects of treatment? @ -no Exacerbation, Progression, or Severe Exacerbation? @ -exacerbation Poses a threat to life or bodily function? How? (Chest pain, USA, PA, pneumonia, PE, COPD, DKA, ARF, appy, cholecystitis, CVA, Diverticulitis, Homicidal, Suicidal, threat to staff... and all critical care pts) @ -yes Reevaluation #5: Differential Dyspnea: Coronary syndrome, arrhythmia, tamponade, asthma, COPD, pulmonary embolism, pneumonia, pneumothorax, pulmonary effusion, anaphylaxis, diabetic ketoacidosis, flailed chest, pulmonary contusion, diaphragmatic rupture, anemia, neuromuscular, this is not meant to be an all-inclusive list. - Consultations Consultation #1: Spoke with zach who agrees to admit this patient Medical Decision Making - Medical Decision Making 23 male will be admitted for alcoholic ketoacidosis and severe alcohol intoxication pending detox for transfer to rehabilitation facility - Lab Data Result diagrams: 08/16/24 17:25 08/16/24 17:25 Lab Results 08/16/24 08/16/24 08/16/24 Range/Units 17:25 17:25 17:25 WBC 6.65 (4.50-10.00) 10*3/uL RBC 5.63 H (4.40-5.60) 10*6/uL Hgb 17.7 H (13.0-17.0) g/dL Hct 48.5 (39.6-50.0) % MCV 86.1 (80.0-97.0) fL MCH 31.4 (27.0-32.0) pg MCHC 36.5 (32.0-37.0) g/dL Plt Count 379 (140-440) 10*3/uL MPV 9.2 L (9.5-12.2) fL Immature Gran % (Auto) 0.2 % Neutrophils % 61.4 % Lymphocytes % 26.9 % Monocytes % 10.4 % Eosinophils % 0.0 % Basophils % 1.1 % Immature Gran # 0.01 (0.00-0.04) 10*3/uL Neutrophils # 4.09 (1.80-7.70) 10*3/uL Lymphocytes # 1.79 (0.90-5.00) 10*3/uL Monocytes # 0.69 (0.20-1.00) 10*3/uL Eosinophils # 0.00 L (0.04-0.35) 10*3/uL Basophils # 0.07 (0.00-0.10) 10*3/uL PT 11.6 (10.0-12.5) sec INR 1.1 (<1.2) Sodium (137-145) mmol/L Potassium (3.5-5.1) mmol/L Chloride (98-107) mmol/L Carbon Dioxide (22-30) mmol/L Anion Gap mmol/L BUN (9-20) mg/dL Creatinine (0.66-1.25) mg/dL Est GFR (CKD-EPI)AfAm (>60 ml/min/1.73 sqM) Est GFR (CKD-EPI)NonAf (>60 ml/min/1.73 sqM) Glucose (74-99) mg/dL Calcium (8.4-10.2) mg/dL Phosphorus (2.5-4.5) mg/dL Magnesium (1.6-2.3) mg/dL Total Bilirubin (0.2-1.3) mg/dL AST (17-59) U/L ALT (4-49) U/L Alkaline Phosphatase (38-126) U/L Total Protein (6.3-8.2) g/dL Albumin (3.5-5.0) g/dL Lipase (23-300) U/L Urine Color Yellow Urine Appearance Clear (Clear) Urine pH 6.0 (5.0-8.0) Ur Specific [place] 1.012 (1.001-1.035) Urine Protein 2+ H (Negative) Urine Glucose (UA) Negative (Negative) Urine Ketones 1+ H (Negative) Urine Blood Moderate H (Negative) Urine Nitrite Negative (Negative) Urine Bilirubin Negative (Negative) Urine Urobilinogen <2.0 (<2.0) mg/dL Ur Leukocyte Esterase Negative (Negative) Urine RBC 1 (0-5) /hpf Urine WBC 2 (0-5) /hpf Ur Squamous Epith Cells 1 (0-4) /hpf Hyaline Casts 37 H (0-2) /lpf Urine Mucus Few H (None) /hpf Urine Opiates Screen Not Detected (NotDetected) Ur Oxycodone Screen Not Detected (NotDetected) Urine Methadone Screen Not Detected (NotDetected) Ur Barbiturates Screen Not Detected (NotDetected) U Tricyclic Antidepress Not Detected (NotDetected) Ur Phencyclidine Scrn Not Detected (NotDetected) Ur Amphetamines Screen Not Detected (NotDetected) U Methamphetamines Scrn Not Detected (NotDetected) U Benzodiazepines Scrn Not Detected (NotDetected) Urine Cocaine Screen Not Detected (NotDetected) U Marijuana (THC) Screen Detected H (NotDetected) Serum Alcohol mg/dL 08/16/24 Range/Units 17:25 WBC (4.50-10.00) 10*3/uL RBC (4.40-5.60) 10*6/uL Hgb (13.0-17.0) g/dL Hct (39.6-50.0) % MCV (80.0-97.0) fL MCH (27.0-32.0) pg MCHC (32.0-37.0) g/dL Plt Count (140-440) 10*3/uL MPV (9.5-12.2) fL Immature Gran % (Auto) % Neutrophils % % Lymphocytes % % Monocytes % % Eosinophils % % Basophils % % Immature Gran # (0.00-0.04) 10*3/uL Neutrophils # (1.80-7.70) 10*3/uL Lymphocytes # (0.90-5.00) 10*3/uL Monocytes # (0.20-1.00) 10*3/uL Eosinophils # (0.04-0.35) 10*3/uL Basophils # (0.00-0.10) 10*3/uL PT (10.0-12.5) sec INR (<1.2) Sodium 145 (137-145) mmol/L Potassium 4.3 (3.5-5.1) mmol/L Chloride 96 L (98-107) mmol/L Carbon Dioxide 18 L (22-30) mmol/L Anion Gap 31 mmol/L BUN 12 (9-20) mg/dL Creatinine 0.90 (0.66-1.25) mg/dL Est GFR (CKD-EPI)AfAm >90 (>60 ml/min/1.73 sqM) Est GFR (CKD-EPI)NonAf >90 (>60 ml/min/1.73 sqM) Glucose 97 (74-99) mg/dL Calcium 9.9 (8.4-10.2) mg/dL Phosphorus 3.4 (2.5-4.5) mg/dL Magnesium 2.0 (1.6-2.3) mg/dL Total Bilirubin 2.0 H (0.2-1.3) mg/dL AST 207 H (17-59) U/L ALT 423 H (4-49) U/L Alkaline Phosphatase 93 (38-126) U/L Total Protein 9.7 H (6.3-8.2) g/dL Albumin 5.9 H (3.5-5.0) g/dL Lipase 165 (23-300) U/L Urine Color Urine Appearance (Clear) Urine pH (5.0-8.0) Ur Specific [place] (1.001-1.035) Urine Protein (Negative) Urine Glucose (UA) (Negative) Urine Ketones (Negative) Urine Blood (Negative) Urine Nitrite (Negative) Urine Bilirubin (Negative) Urine Urobilinogen (<2.0) mg/dL Ur Leukocyte Esterase (Negative) Urine RBC (0-5) /hpf Urine WBC (0-5) /hpf Ur Squamous Epith Cells (0-4) /hpf Hyaline Casts (0-2) /lpf Urine Mucus (None) /hpf Urine Opiates Screen (NotDetected) Ur Oxycodone Screen (NotDetected) Urine Methadone Screen (NotDetected) Ur Barbiturates Screen (NotDetected) U Tricyclic Antidepress (NotDetected) Ur Phencyclidine Scrn (NotDetected) Ur Amphetamines Screen (NotDetected) U Methamphetamines Scrn (NotDetected) U Benzodiazepines Scrn (NotDetected) Urine Cocaine Screen (NotDetected) U Marijuana (THC) Screen (NotDetected) Serum Alcohol 293 H* mg/dL - Radiology Data Radiology results: report reviewed (Chest x-ray is negative for acute disease), image reviewed Disposition Clinical Impression: Alcohol abuse with intoxication, Alcoholic intoxication, Alcoholic ketoacidosis Disposition: ADMITTED IP TO THIS [facility] Condition: Fair Is patient prescribed a controlled substance at d/c from ED?: No Referrals: None,Stated [Primary Care Provider] - 1-2 days Time of Disposition: 18:30
[2024-08-16 17:31] LABS: Basophils # (A) 0.07 10*3/uL (0.00-0.10); Basophils % (A) 1.1 %; Eosinophils # (A) 0.00 10*3/uL (0.04-0.35); Eosinophils % (A) 0.0 %; HCT 48.5 % (39.6-50.0); HGB 17.7 g/dL (13.0-17.0); Lymphocytes # (A) 1.79 10*3/uL (0.90-5.00); Lymphocytes % (A) 26.9 %; MCH 31.4 pg (27.0-32.0); MCHC 36.5 g/dL (32.0-37.0); MCV 86.1 fL (80.0-97.0); Monocytes # (A) 0.69 10*3/uL (0.20-1.00); Monocytes % (A) 10.4 %; Neutrophils # (A) 4.09 10*3/uL (1.80-7.70); Neutrophils % (A) 61.4 %; Platelet Count 379 10*3/uL (140-440); RBC 5.63 10*6/uL (4.40-5.60); RDW 12.4 % (11.5-14.5); WBC 6.65 10*3/uL (4.50-10.00)
[2024-08-16 17:42] LABS: ALT 423 U/L (4-49); AST 207 U/L (17-59); African American GFR (CKD) >90 (>60 ml/min/1.73 sqM); Albumin 5.9 g/dL (3.5-5.0); Alkaline Phosphatase 93 U/L (38-126); Anion Gap 31 mmol/L; Blood Urea Nitrogen 12 mg/dL (9-20); Calcium 9.9 mg/dL (8.4-10.2); Carbon Dioxide 18 mmol/L (22-30); Chloride 96 mmol/L (98-107); Glucose 97 mg/dL (74-99); Lipase 165 U/L (23-300); Magnesium 2.0 mg/dL (1.6-2.3); Non-African American GFR(CKD) >90 (>60 ml/min/1.73 sqM); Potassium 4.3 mmol/L (3.5-5.1); Sodium 145 mmol/L (137-145); Total Protein 9.7 g/dL (6.3-8.2)
[2024-08-16 17:45] LABS: INR 1.1 (<1.2); Prothrombin Time 11.6 sec (10.0-12.5)
[2024-08-16 17:48] LABS: Barbiturate Screen,Urine Not Detected (NotDetected); Benzodiazepines Screen,Urine Not Detected (NotDetected); Opiate Screen,Urine Not Detected (NotDetected); Oxycodone Screen, Urine Not Detected (NotDetected); Phencyclidine Screen,Urine Not Detected (NotDetected); Tricyclic Antidepressant,Urine Not Detected (NotDetected); Urn Cannabinoid Scrn Detected (NotDetected)
[2024-08-16] MEDS: SODIUM CHLORIDE 0.9% 1,000 ML IV STA (17:51)
[2024-08-16] MEDS: ONDANSETRON 4 MG/2 ML VIAL IVP STA (17:52)
[2024-08-16 17:53] LABS: Bilirubin,Urine Negative (Negative); Blood,Urine Moderate (Negative); Color,Urine Yellow; Glucose,Urine (UA) Negative (Negative); Hyaline Casts,Urine 37 /lpf (0-2); Ketones,Urine 1+ (Negative); Leukocyte Esterase,Urine Negative (Negative); Mucus,Urine Few /hpf; Nitrite,Urine Negative (Negative); PH, Urine 6.0 (5.0-8.0); Protein,Urine 2+ (Negative); RBC,Urine 1 /hpf (0-5); Specific Gravity,Urine 1.012 (1.001-1.035); Squamous Epithelial Cell,Urine 1 /hpf (0-4); Urobilinogen,Urine <2.0 mg/dL (<2.0); WBC,Urine 2 /hpf (0-5)
[2024-08-16] MEDS: PANTOPRAZOLE 40 MG/10 ML VIAL IVP STA (17:57)
--- NOTE | 2024-08-16 18:17 | XR ---
EXAMINATION TYPE: XR chest 2V DATE OF EXAM: 08/16/2024 6:13 PM COMPARISON: 07/31/2024 CLINICAL INDICATION: Male, 23 years old with history of cp, Chest pain TECHNIQUE: XR chest 2V views of the chest are obtained. FINDINGS: There is no focal air space opacity. No evidence for pneumothorax. No pleural effusion. The cardiac silhouette size is within normal limits. The osseous structures are grossly intact. IMPRESSION: 1. No acute cardiopulmonary process. [facility], , 08/16/2024 6:15 PM
[2024-08-16] MEDS ORDERED: ONDANSETRON 4 MG/2 ML VIAL IVP PRN (18:29)
[2024-08-16] MEDS ORDERED: NALOXONE 0.4 MG/ML 1 ML VIAL IV PRN (18:29)
[2024-08-16] MEDS: DEXTROSE 5%-0.45% NACL 1,000 ML IV ONE (18:56)
[2024-08-16] MEDS: LORazepam 1 MG/0.5 ML VIAL IV PRN (20:31)
--- NOTE | 2024-08-17 00:42 | P.HPIM ---
History of Present Illness H&P Date: 08/16/24 Chief Complaint: Acute alcohol intoxication. 23-year-old male with no significant past medical history who presented to the ED with acute alcohol intoxication. Patient was unable to provide any meaningful history due to his intoxicated state. No reports of nausea, vomiting, or bleeding were noted. All information was obtained from reviewing the chart. Patient has a history of alcohol abuse. Positive urine drug screen for marijuana indicates polysubstance abuse. review of systems Pertinent positives as noted in HPI. All other systems were reviewed and are negative on exam Constitutional: No acute distress, conversant, pleasant Eyes: Anicteric sclerae, moist conjunctiva, Pupils equal round reactive to light ENMT: NC/AT Oropharynx clear, no erythema, or exudates Neck: Supple, no masses, or JVD No carotid bruits No thyromegaly Lungs: Clear to auscultation Clear to percussion Normal respiratory effort, no accessory muscle use Cardiovascular: Heart regular in rate and rhythm, No murmurs, gallops, or rubs No peripheral edema Abdominal: Soft Nontender, no guarding, rebound or rigidity Abdomen moving with respiration Normoactive bowel sounds Extremities: No digital cyanosis No clubbing Pedal pulses intact and symmetrical Radial pulses intact and symmetrical No calf tenderness Psychiatric: Sleepy and intoxicated Neuro intoxicated did not cooperate moving all extremities Past Medical History Past Medical History: No Reported History History of Any Multi-Drug Resistant Organisms: None Reported Past Surgical History: No Surgical Hx Reported Past Anesthesia/Blood Transfusion Reactions: No Reported Reaction Past Psychological History: No Psychological Hx Reported Smoking Status: Vaper Past Alcohol Use History: Abuse, Daily, Heavy Past Drug Use History: Marijuana Medications and Allergies Home Medications Medication Instructions Recorded Confirmed Type Cider Vinegar [Apple Cider Vinegar] 300 mg PO DAILY 07/31/24 08/16/24 History Multivitamins, Thera [Multivitamin 1 tab PO DAILY 07/31/24 08/16/24 History (formulary)] Turmeric Root Extract [Turmeric] 500 mg PO DAILY 07/31/24 08/16/24 History Allergies Allergy/AdvReac Type Severity Reaction Status Date / Time No Known Allergies Allergy Verified 08/16/24 19:36 Physical Exam Vitals: Vital Signs Temp Pulse Resp BP Pulse Ox 08/16/24 21:56 97.9 F 129 H 19 123/81 99 07/06/25 20:19 98.1 F 114 H 18 128/88 97 08/16/24 16:44 98.2 F 141 H 18 128/91 98 Intake and Output 08/16/24 08/16/24 08/17/24 14:59 22:59 06:59 Other: Weight 61.235 kg Results CBC & Chem 7: 08/16/24 17:25 08/16/24 17:25 Labs: Abnormal Lab Results - Last 24 Hours (Table) 08/16/24 08/16/24 08/16/24 Range/Units 17:25 17:25 17:25 RBC 5.63 H (4.40-5.60) 10*6/uL Hgb 17.7 H (13.0-17.0) g/dL MPV 9.2 L (9.5-12.2) fL Eosinophils # 0.00 L (0.04-0.35) 10*3/uL Chloride 96 L (98-107) mmol/L Carbon Dioxide 18 L (22-30) mmol/L Total Bilirubin 2.0 H (0.2-1.3) mg/dL AST 207 H (17-59) U/L ALT 423 H (4-49) U/L Total Protein 9.7 H (6.3-8.2) g/dL Albumin 5.9 H (3.5-5.0) g/dL Urine Protein 2+ H (Negative) Urine Ketones 1+ H (Negative) Urine Blood Moderate H (Negative) Hyaline Casts 37 H (0-2) /lpf Urine Mucus Few H (None) /hpf U Marijuana (THC) Screen Detected H (NotDetected) Serum Alcohol 293 H* mg/dL Assessment and Plan Assessment: 1. Acute severe alcohol intoxication - Continue to monitor for alcohol withdrawal - IV fluid hydration with normal saline, 125 cc's per hour - Thiamine PO daily - Benzodiazepines per [facility] protocol - Monitor for alcohol withdrawal - Street Photographer patient to quit drinking once sober 2. Transaminitis, likely secondary to alcohol abuse - Continue to monitor and trend liver enzymes - Most likely secondary to alcohol abuse 3. Polysubstance abuse - Positive urine drug screen for marijuana - Street Photographer patient against drug abuse once sober 4. DVT prophylaxis - Lovenox 40 mg subQ daily 5. GI prophylaxis - Protonix 40 mg PO daily 6. Disposition - Possible discharge in the morning pending clinical improvement Lab review ETOH: 293 AST: 207 ALT: 423 Bilirubin: 2 Alkaline phosphatase: negative White blood cell count: 6 Hemoglobin: 17.7 BUN: 12 Creatinine: 0.9 Sodium: 145 Potassium: 4.3 Urine drug screen: Positive for marijuana
[2024-08-17] MEDS: PANTOPRAZOLE 40 MG/10 ML VIAL IVP SCH (02:07)
[2024-08-17] MEDS: LORazepam 1 MG/0.5 ML VIAL IV PRN (06:27)
[2024-08-17 06:50] LABS: ALT 332 U/L (4-49); AST 147 U/L (17-59); African American GFR (CKD) >90 (>60 ml/min/1.73 sqM); Albumin 4.9 g/dL (3.5-5.0); Albumin/Globulin Ratio 1.8; Alkaline Phosphatase 62 U/L (38-126); Anion Gap 13 mmol/L; Blood Urea Nitrogen 10 mg/dL (9-20); Calcium 9.3 mg/dL (8.4-10.2); Carbon Dioxide 27 mmol/L (22-30); Chloride 99 mmol/L (98-107); Globulin 2.8 g/dL; Glucose 84 mg/dL (74-99); Magnesium 1.7 mg/dL (1.6-2.3); Non-African American GFR(CKD) >90 (>60 ml/min/1.73 sqM); Potassium 4.3 mmol/L (3.5-5.1); Sodium 139 mmol/L (137-145); Total Protein 7.7 g/dL (6.3-8.2)
[2024-08-17] MEDS: LORazepam 1 MG TAB PO PRN ×2 (07:57→12:50)
[2024-08-17 08:23] LABS: Basophils # (A) 0.04 X 10*3/uL (0.00-0.10); Basophils % (A) 0.6 %; Eosinophils # (A) 0.03 X 10*3/uL (0.04-0.35); Eosinophils % (A) 0.4 %; HCT 41.3 % (39.6-50.0); HGB 14.5 g/dL (13.0-17.0); Immature Grans, Automated 0.10 %; Lymphocytes # (A) 2.26 X 10*3/uL (0.90-5.00); Lymphocytes % (A) 32.0 %; MCH 30.7 pg (27.0-32.0); MCHC 35.1 g/dL (32.0-37.0); MCV 87.3 FL (80.0-97.0); Monocytes # (A) 0.83 X 10*3/uL (0.20-1.00); Monocytes % (A) 11.8 %; NRBC Per 100 WBC 0 X 10*3/uL (0.00-0.01); Neutrophils # (A) 3.89 X 10*3/uL (1.80-7.70); Neutrophils % (A) 55.1 %; Platelet Count 299 X 10*3/uL (140-440); RBC 4.73 X 10*6/uL (4.40-5.60); RDW 12.6 % (11.5-14.5); WBC 7.06 X 10*3/uL (4.50-10.00)
[2024-08-17] MEDS: ENOXAPARIN 40 MG/0.4 ML SYRINGE SQ SCH (08:26)
--- NOTE | 2024-08-17 10:47 | P.DS ---
Providers Date of admission: 08/16/24 18:30 Expected date of discharge: 08/17/24 Attending physician: Jd Puckett MD Primary care physician: Stated None Hospital Course: Discharge Diagnosis: Alcohol withdrawal, strongly recommended inpatient drug and alcohol rehabilitation facility. Patient provided with outpatient resources available to him including AA meetings, community resources, outpatient counseling, and a list of inpatient substance abuse facilities. Patient reports his mother has obtained rehab for him and she is picking him up and driving him there. Alcohol intoxication upon arrival High anion gap metabolic acidosis, alcoholic ketoacidosis, improved with IV fluid hydration Hyperbilirubinemia with transaminitis. Secondary to daily alcohol abuse. Patient denies abdominal pain or discomfort, nausea, vomiting, or any other complaints. Cannabinoid use disorder. Sinus tachycardia upon arrival. Hospital Course: Patient is a pleasant 23-year-old male with a past medical history of heavy daily alcohol abuse drinking approximately 1/5 of liquor daily, nicotine dependence, and cannabinoid use disorder. He presented to the hospital on 08/16/2024 with alcohol intoxication. Upon arrival to our facility, patient underwent evaluation in the emergency department. Vital signs upon arrival show blood pressure 128/91, heart rate 141, respiratory rate 18, temp 98.2 F, and SpO2 of 98% on room air. Chest x-ray is negative for acute cardiopulmonary process. Labs completed and reviewed. CBC showing polycythemia with hemoglobin of 17.7. Coagulation profile normal findings. BMP showing high anion gap metabolic acidosis with chloride of 96, bicarb 18, and anion gap elevated at 31. Blood glucose 97. Calcium 9.9. Magnesium 2.0. Liver profile showing hyper bilirubinemia with total bili of 2.0, AST of 207, and ALT of 423. Urinalysis positive for marijuana. Serum alcohol level 293. Patient was admitted under our services for alcohol intoxication at this time. Patient was provided with aggressive IV fluid hydration and placed on CIWA protocol with symptom triggered medication regimen with benzodiazepines. He is clinically sober at this time. Metabolic acidosis/alcoholic ketoacidosis significantly improved with IV fluid hydration. Current CIWA score is 0. Patient reports that his mother is picking him up and taking him to an inpatient alcohol rehabilitation facility. Patient strongly advised to avoid any and all alcohol use and medically optimized for discharge at this time. Physical exam: Patient seen and examined at bedside. Vital signs reviewed and stable. General: Nontoxic, no distress and appears stated age. Derm: Skin warm and dry, normal coloration for ethnicity. Head: Atraumatic, normocephalic and symmetric. Eyes: EOM's intact, no lid lag, and anicteric sclera Mouth: no lip lesions, mucus membranes moist Cardiovascular: regular rate and rhythm with normal S1S2, no murmur, positive posterior tibial pulses bilaterally, and cap refill < 2 seconds. Lungs: Respirations even, regular, and unlabored on room air. Lungs CTA bilaterally, no rhonchi, no rales, no wheezing, and no accessory muscle usage. Abdominal: soft, nontender to palpation, no guarding, no appreciable organomegaly Ext: ROM intact. No gross muscle atrophy, no edema, no contractures Neuro: Speech clear, face symmetrical and CN II-XII grossly intact with no noted focal neuro deficits Psych: Alert and oriented to person, place, time, and situation. Appropriate and pleasant affect. A total of 32 minutes of time were spent preparing this complex discharge summary. Pt was discharged on 08/17/2024 at 10:47 AM Patient was seen independently by Nurse Practitioner. This document was prepared using [employer] dictation software. Please allow for errors in scaffold builder while rare they do occur. Vinayak Farmer NP rendered care for this patient independently, reviewed the findings and plan as documented in the note above. I did not physically speak with or examine the patient on this date. Patient Condition at Discharge: Stable Plan - Discharge Summary New Discharge Prescriptions: Continue Multivitamins, Thera [Multivitamin (formulary)] 1 tab PO DAILY Turmeric Root Extract [Turmeric] 500 mg PO DAILY Cider Vinegar [Apple Cider Vinegar] 300 mg PO DAILY Discharge Medication List Cider Vinegar [Apple Cider Vinegar] 300 mg PO DAILY 07/31/24 [History] Multivitamins, Thera [Multivitamin (formulary)] 1 tab PO DAILY 07/31/24 [History] Turmeric Root Extract [Turmeric] 500 mg PO DAILY 07/31/24 [History] Follow up Appointment(s)/Referral(s): None,Stated [Primary Care Provider] - 1-2 days Patient Instructions/Handouts: Abuse of Alcohol (DC), At-Risk Alcohol Use (DC) Activity/Diet/Wound Care/Special Instructions: Activity: As tolerated. Diet: Resume regular diet. Special Instructions: Strongly recommend avoiding any and all alcohol use. It is good that you have worked with your mom and she has set you up with inpatient rehab for further assistance with your detox from alcohol. Wishing you the best of luck on your journey towards sobriety! Thank you for allowing us to participate in your care, it was truly a pleasure having you for our patient!!! Discharge/Stand Alone Forms: AA Meetings [facility], Community Resources, Outpatient Counseling, In Substance Abuse Facilities Discharge Disposition: HOME SELF-CARE
[2024-08-17 12:50] VITALS: BP 133/105; PULSE 107; RESP 20; TEMP 98.4
== END 2024-08-17 13:03 | disposition home or self-care (01) | DRG 775 ==
LOC: EC 16:39 → 5NMEDONC 18:30
PROVIDERS: ADMIT Internal Medicine; ATTEND Internal Medicine
DX: F10.229 Alcohol dependence with intoxication, unspecified (principal); F10.239 Alcohol dependence with withdrawal, unspecified; Y90.8 Blood alcohol level of 240 mg/100 ml or more; D75.1 Secondary polycythemia; E87.29 Other acidosis; F12.10 Cannabis abuse, uncomplicated; E80.6 Other disorders of bilirubin metabolism; R74.01 Elevation of levels of liver transaminase levels; Z79.899 Other long term (current) drug therapy; F17.290 Nicotine dependence, other tobacco product, uncomplicated; R00.0 Tachycardia, unspecified
CPT/HCPCS: 36415; 71046; 80053; 80306; 80320; 81001; 83690; 83735; 84100; 85025; 85610; 96361; 96374; 96375; 96376; 99285